=== PATIENT | female | born 1970 | race American Indian/Alaskan Native ===

== ENCOUNTER 2021-12-28 10:13 | Observation (INO) | payer OTHER ==
[2021-12-28] MEDS ORDERED: HYDROmorphone 0.5 MG/0.5 ML INJ IV ONE (11:22)
[2021-12-28] MEDS ORDERED: TETANUS,DIPH,PERTUSS(ACELL) VACCINE 0.5 ML SYRINGE IM ONE (11:22)
--- NOTE | 2021-12-28 11:24 | Emergency Department Report ---
ED General Adult HPI - General Chief complaint: Animal Bite Stated complaint: SNAKE BITE Time Seen by Provider: 12/28/21 11:13 Source: patient, family, RN notes reviewed Mode of arrival: Wheelchair Limitations: No Limitations - History of Present Illness Initial comments: The patient was evaluated in the emergency department for symptoms described in the history of present illness. He/she was evaluated in the context of the global COVID-19 pandemic, which necessitated consideration that the patient might be at risk for infection with the virus that causes COVID-19. Institutional protocols and algorithms that pertain to the evaluation of patients at risk for COVID-19 are in a state of rapid change based on information released by regulatory bodies including the CDC and federal and state organizations. These policies and algorithms were followed during the patient's care in the emergency department. Please note that these policies, procedures and recommendations changed on a rapid basis. This is a pleasant and cooperative 51-year-old female who works as an mutual fund accountant, who states that she is not , who presents to the department with a complaint of right lateral foot pain, after being bitten by an unknown snake. She complains of localized pain to the puncture site. She denies additional injuries and complaints. Specifically denies headache, neck pain, chest pain, abdominal pain, shortness of breath, vomiting, diarrhea. She does not have proximal right extremity lower pain, swelling or discomfort. Her pain, swelling discomfort are only localized to the right dorsal lateral aspect of the distal foot where she was bit. She does not think that she is up-to-date on tetanus vaccination -: minutes(s) Location: right, lower extremity Severity scale (0 -10): 8 Quality: aching Consistency: constant Improves with: rest Worsens with: movement Associated Symptoms: denies other symptoms - Related Data Home Medications Medication Instructions Recorded Confirmed Last Taken No Known Home Medications [No 12/28/21 12/28/21 Unknown Reported Home Medications] Allergies Allergy/AdvReac Type Severity Reaction Status Date / Time No Known Allergies Allergy Unverified 12/28/21 10:23 ED Review of Systems ROS: Stated complaint: SNAKE BITE Other details as noted in HPI Comment: All other systems reviewed and negative Musculoskeletal: joint swelling, arthralgia, myalgia, other (Pain and swelling at the puncture site on the foot). denies: back pain Skin: lesions ED Past Medical Hx - Past Medical History Previous Medical History?: No - Surgical History Past Surgical History?: Yes Additional Surgical History: Tubaligation - Medications Home Medications: Home Medications Medication Instructions Recorded Confirmed Last Taken Type No Known Home Medications [No 12/28/21 12/28/21 Unknown History Reported Home Medications] ED Physical Exam - General Limitations: No Limitations, Other (Chaperoned by nurse Viri Mckeon) General appearance: alert, in no apparent distress - Head Head exam: Present: atraumatic, normocephalic - Eye Eye exam: Present: normal appearance, EOMI. Absent: nystagmus - ENT ENT exam: Present: normal exam, normal orophraynx, mucous membranes moist, normal external ear exam - Neck Neck exam: Present: normal inspection, full ROM. Absent: tenderness, meningismus - Respiratory Respiratory exam: Present: normal lung sounds bilaterally. Absent: respiratory distress, wheezes, rales, rhonchi, stridor, decreased breath sounds - Cardiovascular Cardiovascular Exam: Present: regular rate, normal rhythm, normal heart sounds. Absent: bradycardia, tachycardia, irregular rhythm, systolic murmur, diastolic murmur, rubs, gallop - GI/Abdominal GI/Abdominal exam: Present: soft, normal bowel sounds. Absent: distended, tenderness, guarding, rebound, rigid, pulsatile mass - Extremities Exam Extremities exam: Present: full ROM (Bilateral upper extremities. Left lower extremity. Right hip and knee), normal capillary refill, other (2+ pulses noted in the bilateral upper and lower extremities. There is no palpable cord. negative Homans sign. Muscular compartments are soft. The pelvis is stable.). Absent: normal inspection (Puncture wound noted to the dorsal lateral aspect of the right foot. There is no surrounding redness, pus or streaking. The compartments are soft. There is minimal surrounding swelling), pedal edema, calf tenderness - Back Exam Back exam: Present: normal inspection. Absent: tenderness, CVA tenderness (R), CVA tenderness (L), paraspinal tenderness, vertebral tenderness - Neurological Exam Neurological exam: Present: alert, oriented X3, other (No facial droop. Tongue midline. Extraocular movements intact bilaterally. Facial sensation intact to light touch in V1, V2, V3 distribution bilaterally. 5 and a 5 strength in 4 extremities. Sensation intact to light touch in 4 extremities.). Absent: motor sensory deficit - Psychiatric Psychiatric exam: Present: normal affect, normal mood - Skin Skin exam: Present: warm, dry, normal color. Absent: cyanosis, diaphoretic, erythema, urticaria, vesicles, petechiae, pallor, abrasion, ecchymosis ED Course Vital Signs 12/28/21 12/28/21 12/28/21 10:21 10:30 16:46 Temperature 98.5 F Pulse Rate 88 85 74 Respiratory 20 17 19 Rate Blood Pressure 125/61 Blood Pressure 148/91 122/71 [Right] O2 Sat by Pulse 99 100 99 Oximetry 12/28/21 12/28/21 12/28/21 17:00 17:16 17:30 Temperature Pulse Rate 66 69 61 Respiratory 14 16 18 Rate Blood Pressure 117/65 117/58 115/62 Blood Pressure [Right] O2 Sat by Pulse 100 100 100 Oximetry 12/28/21 12/28/21 12/28/21 17:46 18:00 18:16 Temperature Pulse Rate 60 65 69 Respiratory 17 14 15 Rate Blood Pressure 122/71 135/79 136/78 Blood Pressure [Right] O2 Sat by Pulse 100 100 100 Oximetry 12/28/21 12/28/21 12/28/21 18:30 18:46 19:00 Temperature Pulse Rate 62 62 65 Respiratory 15 14 14 Rate Blood Pressure 125/78 121/78 134/74 Blood Pressure [Right] O2 Sat by Pulse 100 100 100 Oximetry 12/28/21 12/28/21 12/28/21 19:16 19:30 19:46 Temperature Pulse Rate 87 87 69 Respiratory 10 L 23 16 Rate Blood Pressure 106/67 106/67 127/80 Blood Pressure [Right] O2 Sat by Pulse 93 100 99 Oximetry 12/28/21 20:00 Temperature Pulse Rate 65 Respiratory 16 Rate Blood Pressure 142/79 Blood Pressure [Right] O2 Sat by Pulse 99 Oximetry - Reevaluation(s) Reevaluation #1: 12/28/21 13:48 Differential diagnosis, include but not limited to: Snakebite Assessment and plan: 51-year-old female status post snake bite to right dorsal lateral aspect of the right foot. Laboratory studies are obtained at the recommendation of the Poison Control Center, and discussion with [place] Recommend observation for 8 hours, and extremity elevation. Serial neurov ascular exams. Thus far, have performed multiple serial neurovascular exams in the patient's right lower extremity foot, and they appear to be unchanged. Swelling and pain are localized only to puncture site. Antivenom and CroFab are not recommended at this time. Patient's was given hydromorphone initially, and declines additional hydromorphone. Avoid NSAIDs and Toradol at this time. Patient agreeable to Tylenol at this time. We will continue to observe this patient. Patient will be observed in this department for least 8 hours. As long as she does not progress, or have clinical change, she may be discharged after 8-hour period of observation. If she has change in her clinical progression, Poison Control Center recommends laboratory studies at 6 hours. If she develops further symptoms, admission for 12 to 24 hours is recommended. Extensive discussion had with patient and family member at the bedside, specifically counseled patient and family that pain from a snakebite may persist for a few weeks. Patient is given a tetanus vaccination while here in the department 12/28/21 15:53 The patient is reassessed at approximately 3:00 PM. She is having persistent pain is agreeable to morphine. Pulses are intact. Swelling slightly more pronounced than when compared to prior, and patient also endorses some localized discomfort, on the right posterior lateral distal lower extremity Repeat laboratory studies ordered. We will continue to be observed 12/28/21 18:16 Repeat laboratory studies are essentially unchanged. Swelling has not progressed beyond the right ankle. Patient is neurovascularly intact. [facility] recommend 24 hours observation/admission. They do not recommend CroFab antivenom at this time. They report that they typically reserve this for swelling involving 2 large joints. Patient indicates she does not need additional pain medication at this time. Patient is agreeable to admission/observation. Contacted general surgery on-call, Dr. Hayes. Discussed the patient's history, physical, laboratory studies and clinical impression. We agreed that the patient does not require emergent general surgical evaluation at this time. We also agreed that the patient does not require emergent surgical intervention at this time. Dr. Hayes indicates that the patient can be admitted to the medical service for supportive care and serial neurovascular exams, and should she have a change in her clinical exam, or condition, the general surgery service can be consulted for evaluation. 12/28/21 19:09 Repeat examination appears to be unchanged. Patient about to eat [place] food, and is requesting additional pain medication. 12/28/21 20:13 Dr. Abarca to admit to the medical service ED Medical Decision Making - Lab Data Result diagrams: 12/28/21 16:24 12/28/21 16:24 Vital Signs 12/28/21 12/28/21 10:21 10:30 Temperature 98.5 F Pulse Rate 88 85 Respiratory 20 17 Rate Blood Pressure 148/91 122/71 [Right] O2 Sat by Pulse 99 100 Oximetry Lab Results 12/28/21 12/28/21 12/28/21 Range/Units 11:21 11:21 11:21 WBC 4.9 (4.5-11.0) K/mm3 RBC 4.39 (3.65-5.03) M/mm3 Hgb 12.1 (10.1-14.3) gm/dl Hct 37.1 (30.3-42.9) % MCV 85 (79-97) fl MCH 28 (28-32) pg MCHC 33 (30-34) % RDW 17.6 H (13.2-15.2) % Plt Count 330 (140-440) K/mm3 PT 13.6 (12.2-14.9) Sec. INR 0.94 (0.87-1.13) APTT 30.3 (24.2-36.6) Sec. Fibrinogen 416 (211-480) mg/dl Sodium 138 (137-145) mmol/L Potassium 3.9 (3.6-5.0) mmol/L Chloride 104.8 (98-107) mmol/L Carbon Dioxide 21 L (22-30) mmol/L Anion Gap 16 mmol/L BUN 10 (7-17) mg/dL Creatinine 0.8 (0.6-1.2) mg/dL Estimated GFR > 60 ml/min BUN/Creatinine Ratio 13 % Glucose 90 (65-100) mg/dL Calcium 8.9 (8.4-10.2) mg/dL Total Bilirubin 0.30 (0.1-1.2) mg/dL AST 21 (5-40) units/L ALT 16 (7-56) units/L Alkaline Phosphatase 100 (35-129) units/L Total Creatine Kinase 94 (30-135) units/L Total Protein 7.4 (6.3-8.2) g/dL Albumin 3.5 L (3.9-5) g/dL Albumin/Globulin Ratio 0.9 % - Radiology Data Radiology results: pending, report reviewed, image reviewed RIGHT FOOT, 3 VIEWS INDICATION / CLINICAL INFORMATION: snake bite right foot. COMPARISON: None available. FINDINGS: No acute osseous abnormality. No fracture, dislocation, or osseous puncture site. The soft tissues are grossly unremarkable. No soft tissue gas or foreign object noted. IMPRESSION: Negative radiographs of the right foot following snake bite. Signer Name: Rosario Chavez MD Signed: 12/28/2021 11:26 AM Workstation Name: [id number] Critical care attestation.: If time is entered above; I have spent that time in minutes in the direct care of this critically ill patient, excluding procedure time. ED Disposition Clinical Impression: Right foot pain, Swelling of right foot Snake bite Qualifiers: Encounter type: initial encounter Qualified Code(s): W59.11XA - Bitten by nonvenomous snake, initial encounter Disposition: 09 ADMITTED INPATIENT Is pt being admited?: Yes Does the pt Need Aspirin: No Condition: Good Instructions: Snake Bite Referrals: PRIMARY CAREMD [Primary Care Provider] - 3-5 Days Forms: Work/School Release Form(ED)
[2021-12-28 11:55] LABS: Hematocrit 37.1 % (30.3-42.9); Hemoglobin 12.1 gm/dl (10.1-14.3); Mean Corpuscular HGB Conc 33 % (30-34); Mean Corpuscular Volume 85 fl (79-97); Platelet Count 330 K/mm3 (140-440); Red Blood Count 4.39 M/mm3 (3.65-5.03); Red Cell Distribution Width 17.6 % (13.2-15.2)
[2021-12-28 12:05] LABS: INR 0.94 (0.87-1.13)
[2021-12-28 12:06] LABS: Partial Thromboplastin Time 30.3 Sec. (24.2-36.6)
[2021-12-28 12:08] LABS: Alanine Aminotransferase 16 units/L (7-56); Albumin 3.5 g/dL (3.9-5); BUN/Creatinine Ratio 13; Blood Urea Nitrogen 10 mg/dL (7-17); Calcium 8.9 mg/dL (8.4-10.2); Hemolysis Index 25
--- NOTE | 2021-12-28 12:30 | XRay Report ---
RIGHT FOOT, 3 VIEWS INDICATION / CLINICAL INFORMATION: snake bite right foot. COMPARISON: None available. FINDINGS: No acute osseous abnormality. No fracture, dislocation, or osseous puncture site. The soft tissues ar e grossly unremarkable. No soft tissue gas or foreign object noted. IMPRESSION: Negative radiographs of the right foot following snake bite. Signer Name: Rosario Chavez MD Signed: 12/28/2021 12:26 PM Workstation Name: [id number]
[2021-12-28] MEDS ORDERED: ACETAMINOPHEN 500 MG TAB PO ONE (13:27)
[2021-12-28] MEDS ORDERED: MORPHINE 4 MG/1 ML INJ IV ONE ×2 (15:29→19:09)
[2021-12-28 16:48] LABS: Basophils % (Auto) 0.7 % (0.0-1.8); Eosinophils % (Auto) 0.7 % (0.0-4.3); Hematocrit 39.5 % (30.3-42.9); Hemoglobin 12.7 gm/dl (10.1-14.3); Lymphocytes # (Auto) 1.3 K/mm3 (1.2-5.4); Lymphocytes % (Auto) 25.9 % (13.4-35.0); Mean Corpuscular HGB Conc 32 % (30-34); Mean Corpuscular Volume 83 fl (79-97); Monocytes # (Auto) 0.6 K/mm3 (0.0-0.8); Monocytes % (Auto) 11.9 % (0.0-7.3); Platelet Count 357 K/mm3 (140-440); Red Blood Count 4.79 M/mm3 (3.65-5.03); Red Cell Distribution Width 17.5 % (13.2-15.2)
[2021-12-28] MEDS ORDERED: hydrOXYzine HCL 25 MG TAB PO ONE (16:50)
[2021-12-28 16:57] LABS: Alanine Aminotransferase 16 units/L (7-56); Albumin 3.8 g/dL (3.9-5); BUN/Creatinine Ratio 11; Blood Urea Nitrogen 9 mg/dL (7-17); Calcium 8.9 mg/dL (8.4-10.2); Hemolysis Index 2
[2021-12-28 16:58] LABS: INR 0.97 (0.87-1.13)
[2021-12-28 16:59] LABS: Partial Thromboplastin Time 30.1 Sec. (24.2-36.6)
--- NOTE | 2021-12-28 20:14 | History and Physical Report ---
History of Present Illness Chief complaint: A snake bit me on my foot History of present illness: 51 YO Female with Obesity presents to ED for evaluation. Patient reports "a snake bit me my foot". Patient states that she was ambulating and experienced a sudden onset of pain and swelling in her right foot after being bitten by an unknown type of snake. Patient states that she has experienced worsening pain, redness and swelling in her right foot since being bitten by a snake. Patient states that her pain is 6/10, constant, worsened with ambulation. Patient states that she is unable to bear weight on her right foot due to pain. Patient transported to [facility] via private vehicle for further care and evaluation of the aforementioned symptoms. The patient was seen and evaluated in the emergency department. All lab and imaging studies reviewed. Patient found to have right foot cellulitis complicated by snakebite with unknown envenomation. Proximal control notified. Patient denies fever, chills, chest pain, palpitation, productive cough, skin rash, recent contact, known exposure to COVID-19. No prior admission for review. No medication listed at time of admission for reconciliation. Advanced care planning conducted in ED. Surgery team notified and consulted in ED. Past History Past Medical History: other (See HPI) Past Surgical History: Other (Tubal ligation) Social history: single. denies: smoking, alcohol abuse, prescription drug abuse Family history: hypertension Medications and Allergies Allergies Allergy/AdvReac Type Severity Reaction Status Date / Time No Known Allergies Allergy Unverified 12/28/21 10:23 Home Medications Medication Instructions Recorded Confirmed Last Taken Type No Known Home Medications [No 12/28/21 12/28/21 Unknown History Reported Home Medications] Review of Systems Constitutional: no weight loss, no weight gain, no fever, no chills Ears, nose, mouth and throat: no ear pain, no ear discharge, no decreased hearing, no nasal congestion, no sinus pressure Breasts: no change in shape, no swelling, no mass Cardiovascular: no chest pain, no palpitations, no rapid/irregular heart beat Respiratory: no cough, no excessive sputum, no shortness of breath, no dyspnea on exertion Gastrointestinal: no abdominal pain, no vomiting, no diarrhea, no change in bowel habits, no hematemesis Genitourinary Female: no pelvic pain, no flank pain, no dysuria, no urinary frequency, no urgency Rectal: no pain, no incontinence, no bleeding Musculoskeletal: other (Right foot pain and swelling) Integumentary: rash, no redness, no sores, no wounds, no jaundice Neurological: no head injury, no transient paralysis, no weakness, no numbness, no tingling Psychiatric: no anxiety, no change in sleep habits, no insomnia, no change in appetite, no suicidal ideation Endocrine: no cold intolerance, no polyphagia, no polydipsia, no polyuria Hematologic/Lymphatic: no easy bruising Allergic/Immunologic: no wheezing Exam - Constitutional Vitals: Temp Pulse Resp BP Pulse Ox 98.5 F 65 16 142/79 99 12/28/21 10:21 12/28/21 20:00 12/28/21 20:00 12/28/21 20:00 12/28/21 20:00 General appearance: Present: mild distress, obese - EENT Eyes: Present: PERRL ENT: hearing intact, clear oral mucosa - Neck Neck: Present: supple, normal ROM - Respiratory Respiratory effort: normal Respiratory: bilateral: CTA - Cardiovascular Heart Sounds: Present: S1 & S2. Absent: rub, click - Extremities Extremities: pulses symmetrical, No edema Extremity abnormal: edema, erythema, tenderness, other Peripheral Pulses: within normal limits - Abdominal General gastrointestinal: Present: soft, non-tender, non-distended, normal bowel sounds Female genitourinary: Present: normal - Integumentary Integumentary: Present: clear, warm, dry - Musculoskeletal Musculoskeletal: gait normal, strength equal bilaterally - Psychiatric Psychiatric: appropriate mood/affect, intact judgment & insight - Neurologic Neurologic: CNII-XII intact, moves all extremities Results - Labs CBC & Chem 7: 12/28/21 16:24 12/28/21 16:24 Labs: Abnormal lab results 12/28/21 12/28/21 12/28/21 Range/Units 11:21 11:21 16:24 MCH 27 L (28-32) pg RDW 17.6 H 17.5 H (13.2-15.2) % [place] % (Auto) 11.9 H (0.0-7.3) % Carbon Dioxide 21 L (22-30) mmol/L Glucose (65-100) mg/dL Albumin 3.5 L (3.9-5) g/dL 12/28/21 Range/Units 16:24 MCH (28-32) pg RDW (13.2-15.2) % [place] % (Auto) (0.0-7.3) % Carbon Dioxide (22-30) mmol/L Glucose 117 H (65-100) mg/dL Albumin 3.8 L (3.9-5) g/dL Assessment and Plan - Patient Problems (1) Cellulitis of right foot Current Visit: Yes Status: Acute Plan to address problem: X-ray right foot, CBC, CMP, IV antibiotic therapy, serial vascular exam, pain control, supportive care. Surgery team consulted in ED. (2) Snake bite Current Visit: Yes Status: Acute Qualifiers: Encounter type: initial encounter Qualified Code(s): W59.11XA - Bitten by nonvenomous snake, initial encounter Plan to address problem: Positive for notified, supportive care, right lower extremity elevation, vascular exam RLE, notify MD if patient has change in vascular exam. Surgery team consulted in ED. (3) Obesity (BMI 30.0-34.9) Current Visit: Yes Status: Acute Plan to address problem: Balanced diet, increase physical activity at discharge, risk factor reduction, weight control. (4) Right foot pain Current Visit: Yes Status: Acute Plan to address problem: Pain control, supportive care, right foot lower extremity elevation above the level of the heart while supine. (5) DVT prophylaxis Current Visit: Yes Status: Acute Plan to address problem: SCD to bilateral lower extremities while in bed (6) Advance care planning Current Visit: Yes Status: Acute Plan to address problem: Disease education data, care plan discussed, diagnoses discussed, prognosis discussed, patient is full code. Patient knowledges understanding and agreement with care plan, +30 minutes. (7) Preventative health care Current Visit: Yes Status: Acute Plan to address problem: Patient counseled on rate control, balanced diet, weight reduction, risk factor reduction, outpatient follow-up with primary care physician for all age and risk factor appropriate screening test. Outpatient follow-up with brim greaser operator for all age and risk factor appropriate screening test. +30 minutes.
[2021-12-28] MEDS ORDERED: HYDROmorphone 0.5 MG/0.5 ML INJ IV PRN (20:15)
[2021-12-28] MEDS ORDERED: ONDANSETRON 4 MG/2 ML INJ IV PRN (20:15)
[2021-12-28] MEDS ORDERED: oxyCODONE /ACETAMINOPHEN 5-325MG TAB PO PRN (20:15)
[2021-12-28] MEDS ORDERED: ACETAMINOPHEN 325 MG TAB PO PRN (20:15)
[2021-12-28] MEDS ORDERED: VANCOMYCIN/NS 1 GM/250 ML 1 GM/250 ML BAG IV ONE (20:28)
[2021-12-29 04:27] VITALS: BP 115/68
[2021-12-29 08:24] LABS: Blood Urea Nitrogen 9 mg/dL (7-17); Calcium 8.4 mg/dL (8.4-10.2); Hemolysis Index 4
[2021-12-29 08:33] LABS: Basophils % (Auto) 0.2 % (0.0-1.8); Eosinophils # (Auto) 0.1 K/mm3 (0.0-0.4); Hematocrit 35.2 % (30.3-42.9); Hemoglobin 11.4 gm/dl (10.1-14.3); Mean Corpuscular HGB Conc 32 % (30-34); Mean Corpuscular Volume 83 fl (79-97); Monocytes # (Auto) 0.8 K/mm3 (0.0-0.8); Monocytes % (Auto) 12.1 % (0.0-7.3); Platelet Count 323 K/mm3 (140-440); Red Blood Count 4.23 M/mm3 (3.65-5.03); Red Cell Distribution Width 17.6 % (13.2-15.2)
--- NOTE | 2021-12-29 08:41 | Progress Note ---
Assessment and Plan Assessment and plan: (1) Cellulitis of right foot Current Visit: Yes Status: Acute Plan to address problem: X-ray right foot, CBC, CMP, IV antibiotic therapy, serial vascular exam, pain control, supportive care. Surgery team consulted in ED. (2) Snake bite Current Visit: Yes Status: Acute Qualifiers: Encounter type: initial encounter Qualified Code(s): W59.11XA - Bitten by nonvenomous snake, initial encounter Plan to address problem: Positive for notified, supportive care, right lower extremity elevation, vascular exam RLE, notify MD if patient has change in vascular exam. Surgery team consulted in ED. (3) Obesity (BMI 30.0-34.9) Current Visit: Yes Status: Acute Plan to address problem: Balanced diet, increase physical activity at discharge, risk factor reduction, weight control. (4) Right foot pain Current Visit: Yes Status: Acute Plan to address problem: Pain control, supportive care, right foot lower extremity elevation above the level of the heart while supine. (5) DVT prophylaxis Current Visit: Yes Status: Acute Plan to address problem: SCD to bilateral lower extremities while in bed (6) Advance care planning Current Visit: Yes Status: Acute Plan to address problem: Disease education data, care plan discussed, diagnoses discussed, prognosis discussed, patient is full code. Patient knowledges understanding and agreement with care plan, +30 minutes. (7) Preventative health care Current Visit: Yes Status: Acute Plan to address problem: Patient counseled on rate control, balanced diet, weight reduction, risk factor reduction, outpatient follow-up with primary care physician for all age and risk factor appropriate screening test. Outpatient follow-up with director of compensation for all age and risk factor appropriate screening test. +30 minutes. Hospitalist Physical - Constitutional Vitals: Temp Pulse Resp BP Pulse Ox 98.1 F 69 19 115/68 100 12/29/21 04:21 12/29/21 04:21 12/29/21 04:21 12/29/21 04:21 12/29/21 04:21 General appearance: Present: mild distress, obese Results - Labs CBC & Chem 7: 12/29/21 Unknown 12/28/21 16:24 Labs: Laboratory Last Values WBC 6.9 K/mm3 (4.5-11.0) 12/29/21 Unknown RBC 4.23 M/mm3 (3.65-5.03) 12/29/21 Unknown Hgb 11.4 gm/dl (10.1-14.3) 12/29/21 Unknown Hct 35.2 % (30.3-42.9) 12/29/21 Unknown MCV 83 fl (79-97) 12/29/21 Unknown MCH 27 pg (28-32) L 12/29/21 Unknown MCHC 32 % (30-34) 12/29/21 Unknown RDW 17.6 % (13.2-15.2) H 12/29/21 Unknown Plt Count 323 K/mm3 (140-440) 12/29/21 Unknown Lymph % (Auto) 15.0 % (13.4-35.0) 12/29/21 Unknown [place] % (Auto) 12.1 % (0.0-7.3) H 12/29/21 Unknown Eos % (Auto) 1.0 % (0.0-4.3) 12/29/21 Unknown Baso % (Auto) 0.2 % (0.0-1.8) 12/29/21 Unknown Lymph # (Auto) 1.0 K/mm3 (1.2-5.4) L 12/29/21 Unknown [place] # (Auto) 0.8 K/mm3 (0.0-0.8) 12/29/21 Unknown Eos # (Auto) 0.1 K/mm3 (0.0-0.4) 12/29/21 Unknown Baso # (Auto) 0.0 K/mm3 (0.0-0.1) 12/29/21 Unknown Seg Neutrophils % 71.7 % (40.0-70.0) H 12/29/21 Unknown Seg Neutrophils # 5.0 K/mm3 (1.8-7.7) 12/29/21 Unknown PT 14.0 Sec. (12.2-14.9) 12/28/21 16:24 INR 0.97 (0.87-1.13) 12/28/21 16:24 APTT 30.1 Sec. (24.2-36.6) 12/28/21 16:24 Fibrinogen 438 mg/dl (211-480) 12/28/21 16:24 Sodium 138 mmol/L (137-145) 12/28/21 16:24 Potassium 4.0 mmol/L (3.6-5.0) 12/28/21 16:24 Chloride 103.3 mmol/L (98-107) 12/28/21 16:24 Carbon Dioxide 24 mmol/L (22-30) 12/28/21 16:24 Anion Gap 15 mmol/L 12/28/21 16:24 BUN 9 mg/dL (7-17) 12/28/21 16:24 Creatinine 0.8 mg/dL (0.6-1.2) 12/28/21 16:24 Estimated GFR > 60 ml/min 12/28/21 16:24 BUN/Creatinine Ratio 11 % 12/28/21 16:24 Glucose 117 mg/dL (65-100) H 12/28/21 16:24 Calcium 8.9 mg/dL (8.4-10.2) 12/28/21 16:24 Total Bilirubin 0.30 mg/dL (0.1-1.2) 12/28/21 16:24 AST 19 units/L (5-40) 12/28/21 16:24 ALT 16 units/L (7-56) 12/28/21 16:24 Alkaline Phosphatase 103 units/L (35-129) 12/28/21 16:24 Total Creatine Kinase 97 units/L (30-135) 12/28/21 16:24 Total Protein 6.9 g/dL (6.3-8.2) 12/28/21 16:24 Albumin 3.8 g/dL (3.9-5) L 12/28/21 16:24 Albumin/Globulin Ratio 1.2 % 12/28/21 16:24 Alejandro/IV: Voiding Method Bedpan Active Medications - Current Medications Current Medications: Generic Name Dose Route Start Last Admin Trade Name Freq PRN Reason Stop Dose Admin Acetaminophen 650 mg 12/28/21 20:15 Acetaminophen 325 Mg Tab PO Q4H PRN Pain MILD(1-3)/Fever >100.5/MARTE Hydromorphone HCl 0.5 mg 12/28/21 20:15 12/29/21 00:00 Hydromorphone 0.5 Mg/0.5 Ml Inj IV 0.5 mg Q8H PRN Administration Pain , Severe (7-10) Piperacillin Sod/Tazobactam Sod 4.5 gm in 100 mls @ 200 mls/hr 12/29/21 06:00 Zosyn/Ns 4.5gm/100ml IV Q8H NANCY Protocol Ondansetron HCl 4 mg 12/28/21 20:15 Ondansetron 4 Mg/2 Ml Inj IV Q8H PRN Nausea And Vomiting Oxycodone/Acetaminophen 1 tab 12/28/21 20:15 Oxycodone /Acetaminophen 5-325mg Tab PO Q6H PRN Pain, Moderate (4-6) Sodium Chloride 10 ml 12/28/21 22:00 12/28/21 22:00 Sodium Chloride 0.9% 10 Ml Flush Syringe IV 10 ml BID NANCY Administration Sodium Chloride 10 ml 12/28/21 20:15 Sodium Chloride 0.9% 10 Ml Flush Syringe IV PRN PRN LINE FLUSH
[2021-12-29 08:52] LABS: BUN/Creatinine Ratio 13
[2021-12-29] MEDS: PIPERACIL/TAZOBACTA 4.5/NS 100 4.5 GM/100 ML VIAL IV SCH ×2 (10:42→14:19)
--- NOTE | 2021-12-29 13:25 | Consultation ---
History of Present Illness Consult date: 12/29/21 - History of present illness History of present illness: 51 yo female s/p bitten by a "small snake" yesterday afternoon. Evaluated in ED with only observation recommended. Pt states leg/foot feels better this afternoon. Past History Past Medical History: other (See HPI) Past Surgical History: Other (Tubal ligation) Social history: single. denies: smoking, alcohol abuse, prescription drug abuse Family history: hypertension Medications and Allergies Allergies Allergy/AdvReac Type Severity Reaction Status Date / Time No Known Allergies Allergy Unverified 12/28/21 10:23 Home Medications Medication Instructions Recorded Confirmed Last Taken Type No Known Home Medications [No 12/28/21 12/28/21 Unknown History Reported Home Medications] Active Meds: Active Medications Acetaminophen (Acetaminophen 325 Mg Tab) 650 mg PO Q4H PRN PRN Reason: Pain MILD(1-3)/Fever >100.5/MARTE Hydromorphone HCl (Hydromorphone 0.5 Mg/0.5 Ml Inj) 0.5 mg IV Q8H PRN PRN Reason: Pain , Severe (7-10) Last Admin: 12/29/21 00:00 Dose: 0.5 mg Piperacillin Sod/Tazobactam Sod (Zosyn/Ns 4.5gm/100ml) 4.5 gm in 100 mls @ 200 mls/hr IV Q8H NANCY; Protocol Last Admin: 12/29/21 10:42 Dose: Not Given Ondansetron HCl (Ondansetron 4 Mg/2 Ml Inj) 4 mg IV Q8H PRN PRN Reason: Nausea And Vomiting Oxycodone/Acetaminophen (Oxycodone /Acetaminophen 5-325mg Tab) 1 tab PO Q6H PRN PRN Reason: Pain, Moderate (4-6) Sodium Chloride (Sodium Chloride 0.9% 10 Ml Flush Syringe) 10 ml IV BID NANCY Last Admin: 12/29/21 10:43 Dose: 10 ml Sodium Chloride (Sodium Chloride 0.9% 10 Ml Flush Syringe) 10 ml IV PRN PRN PRN Reason: LINE FLUSH Review of Systems All systems: negative (none) Exam Vital Signs Temp Pulse Resp BP Pulse Ox 98.5 F 88 20 148/91 99 12/28/21 10:21 12/28/21 10:21 12/28/21 10:21 12/28/21 10:21 12/28/21 10:21 - General physical appearance Positive: well developed, well nourished, no distress - Eyes Positive: PERRL, normal occular movement - ENT Positive: normal pinna, normal nares, normal mucosa, no hearing loss, no congestion - Neck Positive: no masses, no bruits, trachea midline, no venous distension - Respiratory Positive: normal expansion, normal respiratory effort, clear to auscultation - Cardiovascular Rhythm: regular Heart Sounds: Present: S1 & S2. Absent: rub, click - Extremities Extremities: no ischemia, pulses symmetrical, abnormal (There is mild right foot and right lower leg edema. DP pulse is easily palpable. Ori's sign is negative. Calf is NT.) - Breasts Breasts: normal, no mass, no skin changes - Abdomen Abdomen: Present: soft, bowel sounds normal. Absent: tender, distended Hernia: none - Genitourinary Male Genitourinary: normal Female Genitourinary: normal - Integumentary no rash, no growths, no abnormal pigmentation - Neurologic Neurologic: alert and oriented to time, place and person, motor strength and s ensation are grossly intact - Musculoskeletal normal gait, normal posture - Psychiatric Psychiatric: appropriate mood/affect, intact judgment & insight Results - Labs 12/29/21 Unknown 12/29/21 Unknown Abnormal lab results 12/28/21 12/28/21 12/29/21 Range/Units 16:24 16:24 Unknown MCH 27 L 27 L (28-32) pg RDW 17.5 H 17.6 H (13.2-15.2) % Cobb % (Auto) 11.9 H 12.1 H (0.0-7.3) % Lymph # (Auto) 1.0 L (1.2-5.4) K/mm3 Seg Neutrophils % 71.7 H (40.0-70.0) % Sodium (137-145) mmol/L Glucose 117 H (65-100) mg/dL Albumin 3.8 L (3.9-5) g/dL 12/29/21 Range/Units Unknown MCH (28-32) pg RDW (13.2-15.2) % Cobb % (Auto) (0.0-7.3) % Lymph # (Auto) (1.2-5.4) K/mm3 Seg Neutrophils % (40.0-70.0) % Sodium 136 L (137-145) mmol/L Glucose 135 H (65-100) mg/dL Albumin (3.9-5) g/dL Diabetes panel 12/28/21 12/29/21 Range/Units 16:24 Unknown Sodium 138 136 L (137-145) mmol/L Potassium 4.0 3.7 (3.6-5.0) mmol/L Chloride 103.3 102.8 (98-107) mmol/L Carbon Dioxide 24 22 (22-30) mmol/L BUN 9 9 (7-17) mg/dL Creatinine 0.8 0.7 (0.6-1.2) mg/dL Glucose 117 H 135 H (65-100) mg/dL Calcium 8.9 8.4 (8.4-10.2) mg/dL AST 19 (5-40) units/L ALT 16 (7-56) units/L Alkaline Phosphatase 103 (35-129) units/L Total Protein 6.9 (6.3-8.2) g/dL Albumin 3.8 L (3.9-5) g/dL Calcium panel 12/28/21 12/29/21 Range/Units 16:24 Unknown Calcium 8.9 8.4 (8.4-10.2) mg/dL Albumin 3.8 L (3.9-5) g/dL Pituitary panel 12/28/21 12/29/21 Range/Units 16:24 Unknown Sodium 138 136 L (137-145) mmol/L Potassium 4.0 3.7 (3.6-5.0) mmol/L Chloride 103.3 102.8 (98-107) mmol/L Carbon Dioxide 24 22 (22-30) mmol/L BUN 9 9 (7-17) mg/dL Creatinine 0.8 0.7 (0.6-1.2) mg/dL Glucose 117 H 135 H (65-100) mg/dL Calcium 8.9 8.4 (8.4-10.2) mg/dL Adrenal panel 12/28/21 12/29/21 Range/Units 16:24 Unknown Sodium 138 136 L (137-145) mmol/L Potassium 4.0 3.7 (3.6-5.0) mmol/L Chloride 103.3 102.8 (98-107) mmol/L Carbon Dioxide 24 22 (22-30) mmol/L BUN 9 9 (7-17) mg/dL Creatinine 0.8 0.7 (0.6-1.2) mg/dL Glucose 117 H 135 H (65-100) mg/dL Calcium 8.9 8.4 (8.4-10.2) mg/dL Total Bilirubin 0.30 (0.1-1.2) mg/dL AST 19 (5-40) units/L ALT 16 (7-56) units/L Alkaline Phosphatase 103 (35-129) units/L Total Protein 6.9 (6.3-8.2) g/dL Albumin 3.8 L (3.9-5) g/dL Assessment and Plan - Patient Problems (1) Snake bite Current Visit: Yes Status: Acute Qualifiers: Encounter type: initial encounter Qualified Code(s): W59.11XA - Bitten by nonvenomous snake, initial encounter Plan to address problem: 1) I do not believe further intervention is indicated. Pt can be discharged from my perspective with strict instructions to keep her right leg elevated at all times. She can take Tylenol prn pain. She can f/u in my office in 3 days.
--- NOTE | 2021-12-29 14:45 | Discharge Summary ---
Providers - Providers Date of Admission: 12/28/21 20:15 Date of discharge: 12/29/21 Attending physician: YANE LOCKHART 12/29/21 05:43 Consult to Physician [CONS] Routine Comment: Consulting Provider: NEO HAYES Physician Instructions: Reason For Exam: Snakebite 12/29/21 14:31 Physical Therapy Evaluation and Treat [CONS] Urgent Comment: Reason For Exam: pt is for dc , right foot swollen from snake bite. Primary care physician: [employer] Hospitalization Reason for admission: Snakebite/cellulitis right foot Condition: Good Pertinent studies: Right foot x-ray; no acute abnormality noted Hospital course: 51-year-old female patient with no significant past medical history, not on any medications was bit by a nonvenomous snake and presented to the emergency room with swelling and pain of right foot initial evaluation in ED with x-ray of the right foot which was negative for any acute abnormality patient did not have any shortness of breath, allergic reaction, was hemodynamically stable ER physician contacted poison control, advised to elevate the limb and n eurovascular examination if stable may be discharged within 24 hours Patient was started on empiric antibiotics, pain medications and elevated the right limb admitted for overnight observation. Patient has no neurological symptoms like numbness or weakness and pulsations are intact and subsequently evaluated by surgeon who recommended symptomatic management of elevating the foot pain medications and cleared for discharge. Patient feels better today she is comfortable swelling significantly improved still has some residual swelling of the right foot no erythema no blisters no other abnormalities Vital signs stable patient is ambulatory and tolerating nutrition patient will be discharged on pain medications, Benadryl as needed, 5 days course of clindamycin. Advised to see primary care physician in 2 to 3 days and also advised to go to the nearest emergency room if she has any worsening symptoms Patient verbalized understanding Cleared by surgery for discharge and follow-up with him in the office in 3 days Stable at discharge Discharge diagnosis: --Cellulitis of right foot Due to nonvenomous snake bite. Pain medications, antihistamines, empiric antibiotics Elevate the limb --Nonvenomous snake bite pulses are intact limb is warm to touch, sensations within normal limits. Motor power intact Elevate the limb and supportive care --Right foot pain due to cellulitis and snakebite Pain control, supportive care, --Obesity (BMI 30.0-34.9) Dietary modification, exercise as tolerated and weight reduction When medically stable --DVT prophylaxis SCD to bilateral lower extremities while in bed Stable at discharge Disposition: 01 HOME / SELF CARE / HOMELESS Final Discharge Diagnosis (Prints w/discharge instructions): Cellulitis right foot. Non-venomous snake bite. Right foot pain. Obesity BMI 31.3 Time spent for discharge: 35 min Core Measure Documentation - Palliative Care Palliative Care/ Comfort Measures: Not Applicable - Core Measures Any of the following diagnoses?: none Exam - Constitutional Vitals: Temp Pulse Resp BP Pulse Ox 98.1 F 69 19 115/68 100 12/29/21 04:21 12/29/21 04:21 12/29/21 04:21 12/29/21 04:12/29/21 04:21 General appearance: Present: no acute distress, well-nourished, obese - EENT Eyes: Present: PERRL, EOM intact - Neck Neck: Present: supple, normal ROM - Respiratory Respiratory effort: normal Respiratory: bilateral: diminished, negative: rales, rhonchi, wheezing - Cardiovascular Rhythm: regular Heart Sounds: Present: S1 & S2 - Extremities Extremities: no ischemia, pulses symmetrical, abnormal (Cellulitis right foot) Extremity abnormal: edema - Abdominal General gastrointestinal: Present: soft, non-tender, non-distended, normal bowel sounds - Integumentary Integumentary: Present: clear, warm - Musculoskeletal Musculoskeletal: strength equal bilaterally - Psychiatric Psychiatric: appropriate mood/affect, cooperative - Neurologic Neurologic: moves all extremities Plan Activity: advance as tolerated, fall precautions, other (Use cane if needed) Diet: regular Additional Instructions: If you have worsening symptoms contact MD or go to the nearest emergency room as needed. Fall precautions, use cane if you have unsteady gait. Follow-up primary care physician in 3 to [address] Hayes in 3 days Follow up with: PRIMARY CAREMD [Primary Care Provider] - 3-5 Days NEO HAYES MD [Staff Physician] - 3 Days Forms: Work/School Release Form(ED) Prescriptions: diphenhydrAMINE [Benadryl CAP] 25 mg PO Q8HR PRN #15 capsule PRN Reason: Itching clindamycin HCL [Clindamycin HCl] 300 mg PO Q6H #20 cap oxyCODONE /ACETAMINOPHEN [Percocet 5/325 mg] 1 tab PO Q8H PRN #12 tablet PRN Reason: Pain, Moderate (4-6)
== END 2021-12-29 17:07 | disposition home or self-care (01) ==
LOC: ED 10:13 → 3A 20:15 → INTOOBSV 20:15 → 3A 22:44
PROVIDERS: ADMIT Internal Medicine; ATTEND Internal Medicine
DX: L03.115 Cellulitis of right lower limb (principal); E66.9 Obesity, unspecified; Z23 Encounter for immunization; W59.11XA Bitten by nonvenomous snake, initial encounter; Y93.89 Activity, other specified; Y92.89 Other specified places as the place of occurrence of the external cause
CPT/HCPCS: 36415; 73630; 80048; 80053; 82550; 85025; 85027; 85384; 85610; 85730; 87040; 90715; 96365; 96367; 96375; 96376; 99284; 99285; G0378; J1170; J2270; J2543; J3370; Q0177